=== PATIENT | female | born 1950 | race African-American/Black ===

== ENCOUNTER → 2017-11-17 16:40 | Outpatient (CLI) | payer MEDICARE ==
[2015-04-09 08:20] VITALS: BMI 35.9
[~2017-11-17 16:40] MED LIST: HALDOL5 MG PO; HYDROCODONE-APA1 TAB PO; KEFLEX500 MG PO; MULTIPLE VITAMI1 TA1 PO; PERCOCET 10/3251 TA1 PO; PROZAC20 MG PO
== END | disposition home or self-care (01) ==
LOC: D.LABREF 16:40
DX: Z85.3 Personal history of malignant neoplasm of breast (principal); Z87.2 Personal history of diseases of the skin and subcutaneous tissue

== ENCOUNTER 2019-05-16 09:30 | Outpatient (CLI) | payer MEDICARE ==
[2015-04-09 08:20] VITALS: BMI 35.9
== END 2019-05-16 10:00 | disposition home or self-care (01) ==
LOC: D.MAMMO 09:30
PROVIDERS: ATTEND Legal Medicine
DX: C50.412 Malignant neoplasm of upper-outer quadrant of left female breast (principal)